=== PATIENT | female | born 1990 | race Caucasian/White ===

== ENCOUNTER 2019-08-22 02:16 | Emergency (ER) | payer OTHER, SELFPAY ==
[2019-08-22 02:28] VITALS: BP 157/104; PULSE 66; RESP 20; TEMP 36.1; O2SAT 100
--- NOTE | 2019-08-22 02:40 | ED.HA ---
HPI - Headache General Chief Complaint: Headache Stated Complaint: migraine Time Seen by Provider: 08/22/19 02:35 Source: patient and RN notes reviewed Mode of arrival: ambulatory Limitations: no limitations History of Present Illness HPI Narrative: A 29 y/o female presents to the ED with a constant, worsening, throbbing, frontal/temporal migraine for the past 6-7 hours. She reports associated N/V, subjective fever, and photophobia. She states that she took Benadryl and Tylenol 4-5 hours ago but denies it alleviating her migraine. She also denies any chills, sweats, rhinorrhea, sore throat, cough, numbness, weakness, or tingling. MD elicited complaint: migraine Pertinent past history: migraines Onset (ago): hour(s) (6-7) Location: frontal and temporal Quality & Timing: throbbing, constant and progressively worsening Exacerbating factors: light Relieving factors: nothing Associated symptoms: fever (subjective), nausea, vomiting and photophobia Treatments prior to arrival: acetaminophen and other (Benadryl) Related Data Home Medications Medication Instructions Recorded Confirmed cetirizine 10 mg PO DAILY 08/22/19 08/22/19 famotidine 20 mg PO DAILY 08/22/19 08/22/19 norethindrone-e.estradiol-iron 1 tablet PO DAILY 08/22/19 08/22/19 [07/27 (28)] Allergies Allergy/AdvReac Type Severity Reaction Status Date / Time nitrofurantoin Allergy Intermediate Hives Verified 08/22/19 02:18 lactose Allergy Unknown Unknown Verified 08/22/19 02:18 metoclopramide [From Reglan] AdvReac Anxiety Verified 08/22/19 02:18 Review of Systems Review of Systems: All systems reviewed & are unremarkable except as noted in HPI and below Constitutional: Constitutional: Denies chills, Reports fever(s) (subjective) and Denies other (sweats) ENT: Denies nasal discharge and Denies sore throat Respiratory: Respiratory: Denies cough Gastrointestinal: Gastrointestinal: Reports nausea and Reports vomiting Neurologic: Reports headache(s) (frontal/temporal), Denies numbness, Denies tingling, Denies weakness and Reports other (photophobia) [facility] Past Medical History Medical History (Updated 08/22/19 @ 03:51 by Ramez Lees MD) Anxiety and depression Bipolar 1 disorder Breech presentation Gestational hypertension Hypertension Migraines Overweight (BMI 25.0-29.9) Term delivered Surgical History Surgical History No history of previous surgery Family History Family History Mother Hypertension Social History Social History Smoking status: Current every day smoker Tobacco type: cigarettes and e-cigarettes Second hand tobacco smoke exposure: Yes Additional smoking assessment comments: Pt quit cigarettes, currently vapes, S.O and family members smoke. Substance use: current Last use: last week Gender identity (if verbalized by the patient): Female Spiritual care concerns: No Exam Narrative: Exam Narrative: GENERAL: Uncomfortable-appearing, well-nourished, and in no acute distress. HEAD: Normocephalic, atraumatic. EYES: PERRL and EOMI. ENT: Mucous membranes moist. NECK: Supple. Full range of motion without meningeal signs. CHEST: Clear to auscultation. No respiratory distress. HEART: Regular rate and rhythm. Normal peripheral pulses. NEURO: Alert and oriented x3. PSYCH: Normal mood and affect. Course Course Emergency Course: Headache resolved with Toradol and IV fluid. Discharge home. Vital Signs Vital signs: Vital Signs Temperature 97.0 F L 08/22/19 02:28 Pulse Rate 66 08/22/19 02:28 Respiratory Rate 08/22/19 02:28 Blood Pressure 157/104 H 08/22/19 02:28 Pulse Oximetry 100 08/22/19 02:28 Temperature 97.0 F L 08/22/19 02:28 Pulse Rate 66 08/22/19 02:28 Respiratory Rate 08/22/19 02:28 Blood Pressure 157/104 H 08/22/19 02:2
[2019-08-22] MEDS: SODIUM CHLORIDE 0.9% IV 1,000 ML 999 ML IV CONT (03:00)
[2019-08-22] MEDS: ONDANSETRON INJ 4 MG/2 ML VIAL IV PUSH (03:01)
[2019-08-22] MEDS: KETOROLAC 30 MG/ML VIAL (*BKC) IV PUSH (03:01)
[2019-08-22 04:07] VITALS: BP 142/88; PULSE 69; RESP 20; TEMP 36.4; O2SAT 99
--- NOTE | 2019-09-03 06:57 | PC.NURSE ---
LATE ENTRY This note is being entered to document information to the patient's record. The following information was omitted on [09/03/2019], by [shaista pepe]. pt NS stopped at 0409 prior to d/c.
== END 2019-08-22 04:09 | disposition home or self-care (01) ==
PROVIDERS: Emergency Provider Emergency Medicine
DX: G43.009 Migraine without aura, not intractable, without status migrainosus (principal); F17.290 Nicotine dependence, other tobacco product, uncomplicated
CPT/HCPCS: 96361; 96374; 96375; 99284; J1885; J2405; J7030